=== PATIENT | female | born 1985 | race Caucasian/White ===

== ENCOUNTER → 2020-10-07 | Outpatient (CLI) | payer OTHER ==
[2020-10-07 09:29] LABS: BASOPHILS % (AUTO) 1 % (0-1); EOSINOPHILS % (AUTO) 4 % (1-7); LYMPHOCYTES % (AUTO) 27 % (22-44); MEAN CORPUSCULAR HEMOGLOBIN 32.9 pg (27.0-34.8); MEAN CORPUSCULAR HGB CONC 34.3 g/dL (32.4-35.8); MEAN PLATELET VOLUME 8.6 fL (7.4-10.4); MONOCYTES % (AUTO) 6 % (2-9); NEUTROPHILS % (AUTO) 62 % (42-75); PLATELET COUNT 268 x10^3/uL (130-400); RED BLOOD COUNT 4.19 x10^6/uL (3.82-5.3); RED CELL DISTRIBUTION WIDTH 13.4 % (9.6-15.2)
[2020-10-07 09:31] LABS: MD NO
[2020-10-07 09:37] LABS: ANION GAP 4 mmol/L (5-15); CALCIUM 8.7 mg/dL (8.5-10.1); CHLORIDE 107 mmol/L (98-107)
[2020-10-07 09:44] LABS: ALANINE AMINOTRANSFERASE 27 U/L (12-78); ALKALINE PHOSPHATASE 62 U/L (45-117); BILIRUBIN,TOTAL 0.5 mg/dL (0.2-1.0); MICROSCOPIC INDICATED; TOTAL PROTEIN 7.7 g/dL (6.4-8.2)
== END | disposition home or self-care (01) ==
LOC: STAR 08:24
PROVIDERS: ATTEND Obstetrics & Gynecology Gynecology
DX: Z01.812 Encounter for preprocedural laboratory examination (principal); N93.9 Abnormal uterine and vaginal bleeding, unspecified; Z20.822 Contact with and (suspected) exposure to COVID-19
CPT/HCPCS: 36415; 80053; 81001; 84702; 85025; U0003; U0005

== ENCOUNTER 2020-10-13 08:22 | Day surgery (SDC) | payer OTHER ==
[~2020-10-13] VITALS: Ht 175.3 cm; Wt 83.0 kg
[2020-10-13] MEDS ORDERED: NO HOME MEDS PER PT (08:52)
[2020-10-13 08:54] VITALS: BP 109/71
[2020-10-13] MEDS ORDERED: CHLORHEXIDINE 15 ML UDC ONE (08:57)
[2020-10-13] MEDS ORDERED: CHLORHEXIDINE 15 ML UDC PO ONE (09:00)
[2020-10-13] MEDS ORDERED: LACTATED RINGERS 1,000 ML IV SCH (09:00)
[2020-10-13 09:13] LABS: HCG UR SG 1.022 (1.003-1.030)
[2020-10-13] MEDS ORDERED: MIDAZOLAM 1 MG/ML, 2ML ONE (10:54)
[2020-10-13] MEDS ORDERED: FENTANYL PF 100 MCG/2ML ONE (10:54)
[2020-10-13] MEDS ORDERED: HYDROmorphone 1 MG/ML, 1ML INJ IVPush PRN (11:30)
[2020-10-13] MEDS ORDERED: MEPERIDINE/PF 25MG/0.5ML IVPush PRN (11:30)
[2020-10-13] MEDS ORDERED: PROMETHAZINE 25 MG/ML, 1ML IVPush PRN (11:30)
[2020-10-13] MEDS ORDERED: OXYcodone 5 MG/5 ML ORAL.SOL UDC PO PRN (11:30)
[2020-10-13] MEDS ORDERED: KETOROLAC 30 MG/1 ML IVPush PRN (11:30)
[2020-10-13] MEDS ORDERED: ACETAMINOPHEN 325 MG TABLET PO PRN (11:30)
[2020-10-13] MEDS ORDERED: HYDROcodone/APAP 7.5-325MG/15ML UDC PO PRN (11:30)
[2020-10-13] MEDS ORDERED: FENTANYL PF 100 MCG/2ML IV PRN (11:30)
[2020-10-13] MEDS ORDERED: ONDANSETRON 2MG/ML, 2ML IVPush PRN (11:30)
[2020-10-13] MEDS ORDERED: ONDANSETRON 2MG/ML, 2ML ONE (12:16)
[2020-10-13] MEDS ORDERED: PROMETHAZINE 25 MG/ML, 1ML ONE (12:28)
== END 2020-10-13 14:25 | disposition home or self-care (01) ==
LOC: OUT 08:22
PROVIDERS: ATTEND Obstetrics & Gynecology Gynecology
DX: N93.9 Abnormal uterine and vaginal bleeding, unspecified (principal); N94.6 Dysmenorrhea, unspecified; Z79.899 Other long term (current) drug therapy; Z88.5 Allergy status to narcotic agent; Z90.49 Acquired absence of other specified parts of digestive tract; Z98.51 Tubal ligation status
CPT/HCPCS: 36415; 58563; 81025; 86850; 86900; 88305; J2250; J2405; J2550; J3010; J7120